=== PATIENT | male | born 1955 | race Hispanic/Latino ===

== ENCOUNTER 2022-03-31 21:42 | Observation (INO) | payer OTHER ==
[~2022-03-31] VITALS: Ht 167.6 cm; Wt 73.6 kg
[~2022-03-31 21:42] MED LIST: AMOX1TAB15 PO; APIX5TAB PO; CALC-131 PO; LOSA100T58 PO; METO25TA3 PO
[2022-03-31 21:59] LABS: BASOPHILS % (AUTO) 0.3 % (0.0-5.0); EOSINOPHILS % (AUTO) 1.6 % (0.0-8.0); HEMATOCRIT 50.2 % (42-54); LYMPHOCYTES % (AUTO) 21.1 % (21.0-51.0); MEAN CORPUSCULAR HEMOGLOBIN 30.6 pg (27.0-33.0); MEAN CORPUSCULAR HGB CONC 35.1 g/dL (32.0-36.0); MEAN CORPUSCULAR VOLUME 87.3 fL (79-99); MONOCYTES % (AUTO) 10.1 % (3.0-13.0); NEUTROPHILS % (AUTO) 66.3 % (40.0-77.0); PLATELET COUNT (AUTO) 194 K/uL (130-400); RED BLOOD CELL COUNT(AUTO) 5.75 MIL/uL (4.50-6.20); RED CELL DISTRIBUTION WIDTH 13.1 % (11.0-15.5); WHITE BLOOD COUNT (AUTO) 6.7 K/uL (4.8-10.8)
[2022-03-31] MEDS ORDERED: NITROGLYCERIN 1GM OINT 1 INCH/1GM TD ONE ×2 (22:03→22:30)
[2022-03-31] MEDS ORDERED: ASPIRIN 81MG CHEW TAB ONE (22:03)
[2022-03-31] MEDS ORDERED: ONDANSETRON 4MG INJ ONE (22:04)
[2022-03-31 22:08] LABS: CREATININE 1.2 mg/dL (0.5-1.5); POTASSIUM 3.5 mmol/L (3.5-5.1)
[2022-03-31 22:15] LABS: ALBUMIN 3.7 g/dL (3.5-5.0); MAGNESIUM 1.8 mg/dL (1.80-2.40); TOTAL PROTEIN, SERUM 7.4 g/dL (6.0-8.3)
[2022-03-31] MEDS ORDERED: ONDANSETRON 4MG INJ IVP ONE (22:30)
[2022-03-31] MEDS ORDERED: ASPIRIN 81MG CHEW TAB PO ONE (22:30)
[2022-03-31] MEDS ORDERED: ACETAMINOPHEN 325 MG TAB PO PRN (23:30)
[2022-03-31] MEDS ORDERED: MORPHINE 2 MG SYG IVP PRN (23:30)
[2022-03-31] MEDS ORDERED: HYDRALAZINE 20MG/ML VIAL IV PRN (23:30)
[2022-03-31] MEDS ORDERED: NITROGLYCERIN 0.4 MG SL TAB SL PRN (23:30)
[2022-04-01 04:19] VITALS: BP 162/92
[2022-04-01 07:20] VITALS: BP 129/77
[2022-04-01] MEDS: FAMOTIDINE 20MG VIAL IV SCH ×2 (08:12→20:14)
[2022-04-01] MEDS: APIXABAN 5 MG TABLET PO SCH ×2 (08:12→20:14)
[2022-04-01] MEDS: ATORVASTATIN 40 MG TABLET PO SCH (08:12)
[2022-04-01] MEDS: LOSARTAN 100 MG TABLET PO SCH (08:12)
[2022-04-01 11:20] VITALS: BP 133/80
[2022-04-01 15:15] VITALS: BP 139/74
[2022-04-01 19:41] VITALS: BP 137/87
[2022-04-01 23:32] VITALS: BP 143/79
[2022-04-02 04:28] VITALS: BP 134/76
[2022-04-02 05:45] LABS: HEMATOCRIT 49.7 % (42-54); MEAN CORPUSCULAR HEMOGLOBIN 29.8 pg (27.0-33.0); MEAN CORPUSCULAR HGB CONC 33.6 g/dL (32.0-36.0); MEAN CORPUSCULAR VOLUME 88.6 fL (79-99); RED BLOOD CELL COUNT(AUTO) 5.61 MIL/uL (4.50-6.20); RED CELL DISTRIBUTION WIDTH 13.4 % (11.0-15.5); WHITE BLOOD COUNT (AUTO) 6.6 K/uL (4.8-10.8)
[2022-04-02 06:05] LABS: ALBUMIN 3.1 g/dL (3.5-5.0); CREATININE 1.2 mg/dL (0.5-1.5); POTASSIUM 3.4 mmol/L (3.5-5.1); TOTAL PROTEIN, SERUM 6.4 g/dL (6.0-8.3)
[2022-04-02 08:00] VITALS: BP 141/90
[2022-04-02] MEDS: FAMOTIDINE 20MG VIAL IV SCH ×2 (08:31→21:04)
[2022-04-02] MEDS: LOSARTAN 100 MG TABLET PO SCH (08:31)
[2022-04-02] MEDS: APIXABAN 5 MG TABLET PO SCH ×2 (08:31→21:05)
[2022-04-02] MEDS: ATORVASTATIN 40 MG TABLET PO SCH (08:31)
[2022-04-02] MEDS: AMLODIPINE 5 MG TAB PO SCH (11:26)
[2022-04-02 12:00] VITALS: BP 153/89
[2022-04-02] MEDS ORDERED: KCL 20 MEQ ERTAB PO ONE (17:00)
[2022-04-02] MEDS ORDERED: HYDROCHLOROTHIAZIDE 25 MG TABLET PO ONE (17:00)
[2022-04-02] MEDS ORDERED: DiphenhydrAMINE HCL 50 MG/ML VIAL ONE (17:22)
[2022-04-02 17:27] VITALS: BP 175/98
[2022-04-02] MEDS ORDERED: DiphenhydrAMINE HCL 50 MG/ML VIAL IM PRN (17:30)
[2022-04-02] MEDS ORDERED: ONDANSETRON 4MG INJ IVP PRN (17:30)
[2022-04-02 20:00] VITALS: BP 169/94
[2022-04-03] VITALS: BP 143/82
[2022-04-03 04:00] VITALS: BP 130/80
[2022-04-03 05:39] LABS: BASOPHILS % (AUTO) 0.4 % (0.0-5.0); EOSINOPHILS % (AUTO) 1.3 % (0.0-8.0); HEMATOCRIT 52.8 % (42-54); LYMPHOCYTES % (AUTO) 15.6 % (21.0-51.0); MEAN CORPUSCULAR HEMOGLOBIN 30.6 pg (27.0-33.0); MEAN CORPUSCULAR HGB CONC 34.8 g/dL (32.0-36.0); MEAN CORPUSCULAR VOLUME 87.7 fL (79-99); MONOCYTES % (AUTO) 9.5 % (3.0-13.0); NEUTROPHILS % (AUTO) 72.7 % (40.0-77.0); PLATELET COUNT (AUTO) 219 K/uL (130-400); RED BLOOD CELL COUNT(AUTO) 6.02 MIL/uL (4.50-6.20); RED CELL DISTRIBUTION WIDTH 13.2 % (11.0-15.5); WHITE BLOOD COUNT (AUTO) 7.5 K/uL (4.8-10.8)
[2022-04-03 05:57] LABS: CREATININE 1.2 mg/dL (0.5-1.5); POTASSIUM 3.7 mmol/L (3.5-5.1)
[2022-04-03 07:54] VITALS: BP 131/75
[2022-04-03] MEDS: ATORVASTATIN 40 MG TABLET PO SCH (08:33)
[2022-04-03] MEDS: FAMOTIDINE 20MG VIAL IV SCH (08:33)
[2022-04-03] MEDS: LOSARTAN 100 MG TABLET PO SCH (08:33)
[2022-04-03] MEDS: AMLODIPINE 5 MG TAB PO SCH (08:33)
[2022-04-03] MEDS ORDERED: HYDROCHLOROTHIAZIDE 25 MG TABLET PO SCH (09:00)
[2022-04-03] MEDS ORDERED: REGADENOSON 0.4 MG/5 ML PF SYG IVP SCH (10:00)
[2022-04-03 12:56] VITALS: BP 137/87
[2022-04-03] MEDS ORDERED: HYDR25TA PO (13:49)
[2022-04-03] MEDS ORDERED: ATOR40TA69 PO (13:49)
[2022-04-03] MEDS ORDERED: AMLO5TAB4 PO (13:49)
[2022-04-03 15:33] VITALS: BP 122/69
[2022-04-03] MEDS ORDERED: APIXABAN 5 MG TABLET PO SCH (21:00)
== END 2022-04-03 16:13 | disposition home or self-care (01) ==
LOC: EDH 21:42 → EDHIP 22:57 → INTOOBSV 22:57 → 4AH 04-01 02:27
PROVIDERS: ADMIT Internal Medicine; ATTEND Internal Medicine
DX: R07.89 Other chest pain (principal); I20.0 Unstable angina; I16.0 Hypertensive urgency; I11.0 Hypertensive heart disease with heart failure; I50.22 Chronic systolic (congestive) heart failure; I48.0 Paroxysmal atrial fibrillation; I63.9 Cerebral infarction, unspecified; D68.59 Other primary thrombophilia; R29.700 NIHSS score 0; E78.5 Hyperlipidemia, unspecified; Z79.01 Long term (current) use of anticoagulants; Z79.899 Other long term (current) drug therapy; Z90.49 Acquired absence of other specified parts of digestive tract; Z98.890 Other specified postprocedural states; Z79.82 Long term (current) use of aspirin
CPT/HCPCS: 96374; 99285; 83735; 84484 ×4; 80053 ×2; 85025 ×2; 36415 ×4; 71045; 93005; 96376 ×3; 96375 ×2; 82550 ×3; 83874 ×3; 80061; 85027; 82948; 80048; 83880; 93017; 78452; J2405; J3490 ×5; G0378 ×28; J1200; J0360; J2785; A9500 ×2

== ENCOUNTER → 2024-03-30 | Outpatient (CLI) | payer MEDICARE ==
[~2024-03-30] MED LIST changes: +AMLO5TAB4 PO; -AMOX1TAB15 PO; +ATOR40TA69 PO; -CALC-131 PO; +HYDR25TA PO; -LOSA100T58 PO; +LOSA100T59 PO; -METO25TA3 PO
[2024-03-30 16:25] LABS: ALBUMIN 3.8 g/dL (3.5-5.0); BILIRUBIN,TOTAL 0.8 mg/dL (0.2-1.0); CREATININE 1.3 mg/dL (0.5-1.3); PHOSPHORUS 3.8 mg/dL (2.5-4.9); POTASSIUM 4.1 mmol/L (3.5-5.1); TOTAL PROTEIN, SERUM 7.7 g/dL (6.0-8.3)
== END | disposition home or self-care (01) ==
LOC: LAB 14:41
PROVIDERS: ATTEND Internal Medicine Cardiovascular Disease
DX: I48.0 Paroxysmal atrial fibrillation (principal)
CPT/HCPCS: 36415; 80053; 83735; 84100